=== PATIENT | male | born 1960 | race Caucasian/White ===

== ENCOUNTER 2022-01-05 19:11 | Inpatient (IN) | payer SELFPAY ==
[~2022-01-05] VITALS: Ht 179.1 cm; Wt 81.2 kg
[2022-01-05 19:15] VITALS: BP 142/74
[2022-01-05 19:33] LABS: HEMATOCRIT 42.6 % (42.0-52.0); MEAN CELL VOLUME 94.2 fl (80.0-94.0); MEAN CORPUSCULAR HGB 31.6 pg (27.0-31.0); MEAN CORPUSCULAR HGB CONC 33.6 g/dl (33.0-37.0); MEAN PLATELET VOLUME 10.4 fl (9.6-12.3); PLATELET COUNT AUTOMATED 217 10*3/uL (130-400); RED BLOOD COUNT 4.52 10*6/uL (4.50-5.90); RED CELL DISTRI WIDTH 13.7 % (0-14.5); WHITE BLOOD COUNT 9.6 10*3/uL (4.8-10.8)
[2022-01-05 19:34] LABS: MANUAL DIFF REFLEX YES
[2022-01-05 19:44] LABS: ACT PARTIAL THROMBO TIME 35.3 SECONDS (20.0-32.1); INTERNATIONAL NORM RATIO 1.3 (2.0-3.5)
[2022-01-05 19:49] LABS: ALKALINE PHOSPHATASE 98 U/L (45-117); BUN 13 mg/dl (7-24); CHLORIDE 108 mmol/L (98-107); CREATININE 0.91 mg/dL (0.70-1.30); POTASSIUM 3.4 mmol/L (3.5-5.1); SGOT/AST 24 IU/L (3-35); SGPT/ALT 24 U/L (12-78); SODIUM 136 mmol/L (136-145); TOTAL PROTEIN 7.7 gm/dL (6.4-8.2)
[2022-01-05 20:07] LABS: BASOPHILS 1 % (0-1); PLATELET SUFFICIENCY NORMAL (NORMAL); TOTAL CELLS COUNTED 100 #CELLS
[2022-01-06 00:45] VITALS: BP 132/70
[2022-01-06 05:54] LABS: ALKALINE PHOSPHATASE 86 U/L (45-117); BUN 14 mg/dl (7-24); CHLORIDE 108 mmol/L (98-107); CHOLESTEROL 183 mg/dL (<200); CREATININE 0.94 mg/dL (0.70-1.30); LDL CHOLESTEROL 114 mg/dL (9-159); POTASSIUM 4.3 mmol/L (3.5-5.1); SGOT/AST 27 IU/L (3-35); SGPT/ALT 27 U/L (12-78); SODIUM 139 mmol/L (136-145); TOTAL PROTEIN 6.9 gm/dL (6.4-8.2); TRIGLYCERIDES 195 mg/dl (<150)
[2022-01-06 06:00] LABS: FREE T4 1.11 ng/dl (0.76-1.46)
[2022-01-06 06:13] LABS: BASO # 0.1 10*3/uL (0.0-0.1); BASO % 0.8 % (0.0-1.0); EOS % 0.3 % (1.0-4.0); HEMATOCRIT 41.5 % (42.0-52.0); LYMPH # 1.7 10*3/uL (1.3-4.4); LYMPH % 19.4 % (27.0-41.0); MEAN CELL VOLUME 94.5 fl (80.0-94.0); MEAN CORPUSCULAR HGB 31.4 pg (27.0-31.0); MEAN CORPUSCULAR HGB CONC 33.3 g/dl (33.0-37.0); MEAN PLATELET VOLUME 10.9 fl (9.6-12.3); MONO # 1.2 10*3/uL (0.1-1.0); MONO % 14.1 % (3.0-9.0); NEUT # 5.7 10*3/uL (2.3-7.9); NEUT % 65.1 % (47.0-73.0); PLATELET COUNT AUTOMATED 208 10*3/uL (130-400); RED BLOOD COUNT 4.39 10*6/uL (4.50-5.90); RED CELL DISTRI WIDTH 13.8 % (0-14.5); WHITE BLOOD COUNT 8.8 10*3/uL (4.8-10.8)
[2022-01-06 06:22] LABS: ACT PARTIAL THROMBO TIME 36.4 SECONDS (20.0-32.1); INTERNATIONAL NORM RATIO 1.3 (2.0-3.5)
[2022-01-06 08:00] VITALS: BP 130/63
[2022-01-06 12:00] VITALS: BP 136/66
== END 2022-01-06 14:30 | disposition left against medical advice (07) | DRG 313 ==
LOC: ED 19:11 → 5E 23:06 → EDHOLD 23:06 → 5E 23:46
PROVIDERS: Emergency Medicine; Internal Medicine; ADMIT Internal Medicine; ATTEND Internal Medicine
DX: R07.9 Chest pain, unspecified (principal); K92.1 Melena; R55 Syncope and collapse; F17.210 Nicotine dependence, cigarettes, uncomplicated; I10 Essential (primary) hypertension; D75.89 Other specified diseases of blood and blood-forming organs; M54.2 Cervicalgia; E87.6 Hypokalemia; E87.8 Other disorders of electrolyte and fluid balance, not elsewhere classified; E83.41 Hypermagnesemia; Z53.29 Procedure and treatment not carried out because of patient's decision for other reasons; F12.90 Cannabis use, unspecified, uncomplicated; Z88.1 Allergy status to other antibiotic agents; Z88.8 Allergy status to other drugs, medicaments and biological substances; Z79.82 Long term (current) use of aspirin; Z79.899 Other long term (current) drug therapy; Z80.1 Family history of malignant neoplasm of trachea, bronchus and lung; Z80.8 Family history of malignant neoplasm of other organs or systems; Z71.6 Tobacco abuse counseling

== ENCOUNTER 2023-05-27 16:04 | Emergency (ER) | payer SELFPAY ==
[~2023-05-27] VITALS: Wt 82.6 kg
[2023-05-27 16:13] VITALS: BP 160/86
[2023-05-27 16:26] LABS: BASO # 0.1 10*3/uL (0.0-0.1); BASO % 0.6 % (0.0-1.0); EOS # 0.1 10*3/uL (0.0-0.4); EOS % 0.4 % (1.0-4.0); HEMATOCRIT 42.2 % (42.0-52.0); LYMPH # 1.4 10*3/uL (1.3-4.4); LYMPH % 11.7 % (27.0-41.0); MEAN CELL VOLUME 91.9 fl (80.0-94.0); MEAN CORPUSCULAR HGB CONC 34.8 g/dl (33.0-37.0); MONO # 1.7 10*3/uL (0.1-1.0); MONO % 14.5 % (3.0-9.0); NEUT # 8.5 10*3/uL (2.3-7.9); NEUT % 72.5 % (47.0-73.0); PLATELET COUNT AUTOMATED 273 10*3/uL (130-400); RED BLOOD COUNT 4.59 10*6/uL (4.50-5.90); RED CELL DISTRI WIDTH 12.7 % (0-14.5); WHITE BLOOD COUNT 11.7 10*3/uL (4.8-10.8)
[2023-05-27 16:52] VITALS: BP 146/85
[2023-05-27 16:52] LABS: ALKALINE PHOSPHATASE 95 U/L (46-116); BUN 10 mg/dl (9-23); CHLORIDE 104 mmol/L (98-107); POTASSIUM 3.4 mmol/L (3.4-5.1); SGPT/ALT 18 U/L (5-49); TOTAL PROTEIN 7.9 gm/dL (6.0-8.0)
[2023-05-27 17:00] LABS: BASOPHILS 1 % (0-1); TOTAL CELLS COUNTED 100 #CELLS
[2023-05-27 17:01] LABS: BURR CELLS FEW; OVALOCYTES FEW; PLATELET SUFFICIENCY NORMAL (NORMAL); TARGET CELLS FEW
[2023-05-27 19:01] VITALS: BP 136/66
== END 2023-05-27 20:13 | disposition left against medical advice (07) ==
LOC: ED 16:04 → EDHOLD 19:42 → ED 19:42
PROVIDERS: Family Medicine
DX: R07.89 Other chest pain (principal); I10 Essential (primary) hypertension; E78.5 Hyperlipidemia, unspecified; R20.0 Anesthesia of skin; E78.00 Pure hypercholesterolemia, unspecified; E83.41 Hypermagnesemia; E87.6 Hypokalemia; F17.200 Nicotine dependence, unspecified, uncomplicated; F12.90 Cannabis use, unspecified, uncomplicated; F10.10 Alcohol abuse, uncomplicated; Z88.1 Allergy status to other antibiotic agents; Z88.8 Allergy status to other drugs, medicaments and biological substances

== ENCOUNTER 2023-07-14 11:36 | Emergency (ER) | payer SELFPAY ==
[~2023-07-14] VITALS: Ht 177.8 cm; Wt 81.6 kg
[2023-07-14] MEDS ORDERED: Motrin,Rufen800 MG PO (11:56)
[2023-07-14] MEDS ORDERED: CLINDAMYCIN HC300 MG PO (11:56)
[2023-07-14] MEDS ORDERED: BENZOCAINE 20% 11.9 GM GEL T STA (11:57)
[2023-07-14] MEDS ORDERED: Lidocaine Hydrochloride 15 ML UDC PO STA (11:57)
[2023-07-14] MEDS ORDERED: CLINDAMYCIN HCL 300 MG CAPSULE PO ONE (12:00)
[2023-07-14] MEDS ORDERED: Ketorolac Tromethamine 60 MG/2 ML VIAL IM ONE (12:00)
[2023-07-14] MEDS ORDERED: Acetaminophen/Hydrocodone 5 MG/325 MG TABLET PO ONE (12:00)
== END 2023-07-14 12:35 | disposition home or self-care (01) ==
LOC: ED 11:36
DX: K04.7 Periapical abscess without sinus (principal); E78.00 Pure hypercholesterolemia, unspecified; E83.41 Hypermagnesemia; I10 Essential (primary) hypertension; E87.6 Hypokalemia; F17.200 Nicotine dependence, unspecified, uncomplicated; F12.90 Cannabis use, unspecified, uncomplicated; Z88.1 Allergy status to other antibiotic agents; Z88.8 Allergy status to other drugs, medicaments and biological substances

== ENCOUNTER 2025-02-02 18:19 | Inpatient (IN) | payer SELFPAY ==
[~2025-02-02] VITALS: Ht 177.8 cm; Wt 79.4 kg
[~2025-02-02 18:19] MED LIST: CLINDAMYCIN HC300 MG PO; Motrin,Rufen800 MG PO
[2025-02-02 18:24] VITALS: BP 154/88
[2025-02-02] MEDS ORDERED: ASPIRIN81 M3 PO (18:28)
[2025-02-02 19:42] LABS: BASO # 0.1 10*3/uL (0.0-0.1); BASO % 0.5 % (0.0-1.0); EOS # 0.1 10*3/uL (0.0-0.4); EOS % 0.4 % (1.0-4.0); MEAN CELL VOLUME 94.4 fl (80.0-94.0); MEAN CORPUSCULAR HGB 32.0 pg (27.0-31.0); MEAN PLATELET VOLUME 10.5 fl (9.6-12.3); MONO # 1.1 10*3/uL (0.1-1.0); MONO % 5.5 % (3.0-9.0); NEUT # 16.9 10*3/uL (2.3-7.9); NEUT % 84.4 % (47.0-73.0); NUCLEATED RED BLOOD CELL 0.0 % (0.0-0.0); NUCLEATED RED BLOOD CELL 0.0 10*3/uL (0.0-0.0); PLATELET COUNT AUTOMATED 245 10*3/uL (130-400); RED CELL DISTRI WIDTH 13.3 % (0-14.5)
[2025-02-02] MEDS ORDERED: BISACODYL 10 MG SUPP R PRN (19:55)
[2025-02-02] MEDS ORDERED: Acetaminophen/Hydrocodone 5 MG/325 MG TABLET PO PRN (19:55)
[2025-02-02] MEDS ORDERED: BISACODYL 5 MG TAB PO PRN (19:55)
[2025-02-02] MEDS ORDERED: TEMAZEPAM 15 MG CAP PO PRN (19:55)
[2025-02-02] MEDS ORDERED: ACETAMINOPHEN 325 MG TAB PO PRN (19:55)
[2025-02-02] MEDS ORDERED: ACETAMINOPHEN 650 MG SUPP R PRN (19:55)
[2025-02-02] MEDS ORDERED: Ondansetron Hydrochloride 4 MG/2 ML VIAL IV PRN (19:55)
[2025-02-02 19:56] LABS: ACT PARTIAL THROMBO TIME 26.3 SECONDS (20.0-32.1)
[2025-02-02 20:01] LABS: BUN 10 mg/dl (9-23)
[2025-02-02] MEDS ORDERED: SODIUM CHLORIDE 0.9% 1,000 ML IV ONE (20:35)
[2025-02-03] VITALS (10 sets, daily range): BP systolic 114–155; BP diastolic 66–91
[2025-02-03 06:14] LABS: BASO # 0.1 10*3/uL (0.0-0.1); BASO % 0.5 % (0.0-1.0); EOS # 0.2 10*3/uL (0.0-0.4); EOS % 1.4 % (1.0-4.0); MEAN CELL VOLUME 95.2 fl (80.0-94.0); MEAN CORPUSCULAR HGB 31.8 pg (27.0-31.0); MEAN PLATELET VOLUME 11.1 fl (9.6-12.3); MONO # 1.3 10*3/uL (0.1-1.0); MONO % 9.1 % (3.0-9.0); NEUT # 9.9 10*3/uL (2.3-7.9); NEUT % 67.4 % (47.0-73.0); NUCLEATED RED BLOOD CELL 0.0 % (0.0-0.0); NUCLEATED RED BLOOD CELL 0.0 10*3/uL (0.0-0.0); PLATELET COUNT AUTOMATED 264 10*3/uL (130-400); RED CELL DISTRI WIDTH 13.8 % (0-14.5)
[2025-02-03 06:52] LABS: BUN 9 mg/dl (9-23); FREE T4 1.34 ng/dl (0.89-1.76); LDL CHOLESTEROL 122 mg/dL (9-159); SGPT/ALT 15 U/L (5-49)
[2025-02-03 06:57] LABS: VITAMIN D, 25-HYDROXY 33.3 ng/mL (30-100)
[2025-02-03] MEDS ORDERED: ACETAMINOPHEN 0 ML IV ONE (07:30)
[2025-02-03] MEDS ORDERED: Lactated Ringer's Solution 0 ML IV ONE (07:30)
[2025-02-03] MEDS ORDERED: TRANEXAMIC ACID IN NACL,ISO-OS 100 ML IV ONE ×2 (09:00→09:36)
[2025-02-03] MEDS ORDERED: Ropivacaine Hydrochloride 5 MG/ML 20 ML AMP IJ ONE (09:51)
[2025-02-03] MEDS ORDERED: ACETAMINOPHEN 100 ML IV ONE (09:51)
[2025-02-03] MEDS ORDERED: Cholecalciferol 2,000 UNIT TABLET (50 MCG) PO SCH (10:00)
[2025-02-03] MEDS ORDERED: Lactated Ringer's Solution 1,000 ML IV ONE ×2 (10:02→11:31)
[2025-02-03] MEDS ORDERED: Ketamine Hydrochloride 50 MG/5 ML SYRINGE IV ONE (13:38)
[2025-02-03] MEDS ORDERED: Midazolam Hydrochloride 2 MG/2 ML VIAL IV ONE (13:38)
[2025-02-03] MEDS ORDERED: ePHEDrine Sulfate 25 MG/5 ML SYRINGE IV ONE (13:38)
[2025-02-03] MEDS ORDERED: GLYCOPYRROLATE 0.4 MG/2 ML VIAL IV ONE (13:38)
[2025-02-03] MEDS ORDERED: Dexamethasone Sodium Phospha 4 MG/ML VIAL IV ONE (13:38)
[2025-02-03] MEDS ORDERED: Ondansetron Hydrochloride 4 MG/2 ML VIAL IV ONE (13:38)
[2025-02-03] MEDS ORDERED: PROPOFOL 200 MG/20 ML VIAL IV ONE (13:38)
[2025-02-03] MEDS ORDERED: SUGAMMADEX SODIUM 200 MG/2 ML VIAL IV ONE (13:38)
[2025-02-03] MEDS ORDERED: SEVOFLURANE 250 ML BOT INH ONE (13:38)
[2025-02-03] MEDS ORDERED: Lidocaine Hydrochloride 5 ML VIAL IV ONE (13:38)
[2025-02-04] VITALS (9 sets, daily range): BP systolic 128–178; BP diastolic 66–88
[2025-02-04 06:00] LABS: BUN 11 mg/dl (9-23)
[2025-02-04 06:10] LABS: MEAN CELL VOLUME 94.7 fl (80.0-94.0); MEAN CORPUSCULAR HGB 31.1 pg (27.0-31.0); MEAN PLATELET VOLUME 11.2 fl (9.6-12.3); NUCLEATED RED BLOOD CELL 0.0 % (0.0-0.0); NUCLEATED RED BLOOD CELL 0.0 10*3/uL (0.0-0.0); PLATELET COUNT AUTOMATED 230 10*3/uL (130-400); RED CELL DISTRI WIDTH 13.9 % (0-14.5)
[2025-02-04 06:12] LABS: MANUAL DIFF REFLEX YES
[2025-02-04 06:54] LABS: PLATELET SUFFICIENCY NORMAL (NORMAL)
[2025-02-04] MEDS ORDERED: ASPIRIN ENTERIC COATED 81 MG TAB PO SCH ×2 (10:00)
[2025-02-04] MEDS ORDERED: Acetaminophen/Oxycodone 5 MG/325 MG TABLET PO PRN (19:00)
[2025-02-05 05:33] LABS: BUN 11 mg/dl (9-23)
[2025-02-05 06:04] LABS: BASO # 0.1 10*3/uL (0.0-0.1); BASO % 0.4 % (0.0-1.0); EOS # 0.2 10*3/uL (0.0-0.4); EOS % 1.0 % (1.0-4.0); MEAN CELL VOLUME 96.4 fl (80.0-94.0); MEAN CORPUSCULAR HGB 31.3 pg (27.0-31.0); MEAN PLATELET VOLUME 11.4 fl (9.6-12.3); MONO # 1.5 10*3/uL (0.1-1.0); MONO % 10.1 % (3.0-9.0); NEUT # 9.3 10*3/uL (2.3-7.9); NEUT % 62.9 % (47.0-73.0); NUCLEATED RED BLOOD CELL 0.0 % (0.0-0.0); NUCLEATED RED BLOOD CELL 0.0 10*3/uL (0.0-0.0); PLATELET COUNT AUTOMATED 229 10*3/uL (130-400); RED CELL DISTRI WIDTH 14.0 % (0-14.5)
[2025-02-05 08:00] VITALS: BP 162/78
[2025-02-05 11:51] VITALS: BP 169/79
[2025-02-05] MEDS ORDERED: PERCOCET 5-3251 EACH PO (12:53)
[2025-02-05] MEDS ORDERED: VITAMIN D350 MCG PO (12:53)
[2025-02-05] MEDS ORDERED: Motrin,Rufen800 MG PO (15:10)
== END 2025-02-05 14:49 | disposition home or self-care (01) | DRG 522 ==
LOC: ED 18:19 → EDHOLD 19:48 → 4E 02-03 09:13
PROVIDERS: Nurse Practitioner Family; Orthopaedic Surgery; Student in an Organized Health Care Education/Training Program; ADMIT Internal Medicine; ATTEND Internal Medicine
PROC: 0SRR0JZ Replacement of Right Hip Joint, Femoral Surface with Synthetic Substitute, Open Approach (ICD-10-PCS; principal; 2025-02-03)
DX: S72.001A Fracture of unspecified part of neck of right femur, initial encounter for closed fracture (principal); E87.1 Hypo-osmolality and hyponatremia; D64.9 Anemia, unspecified; F17.210 Nicotine dependence, cigarettes, uncomplicated; D72.828 Other elevated white blood cell count; I10 Essential (primary) hypertension; Z88.8 Allergy status to other drugs, medicaments and biological substances; Z91.09 Other allergy status, other than to drugs and biological substances; Z80.1 Family history of malignant neoplasm of trachea, bronchus and lung; Z80.8 Family history of malignant neoplasm of other organs or systems; Z79.899 Other long term (current) drug therapy; Z79.01 Long term (current) use of anticoagulants; Z79.2 Long term (current) use of antibiotics; Z79.82 Long term (current) use of aspirin; W18.39XA Other fall on same level, initial encounter; Y93.89 Activity, other specified; Y92.89 Other specified places as the place of occurrence of the external cause; Y99.8 Other external cause status; Z71.6 Tobacco abuse counseling

== ENCOUNTER → 2025-02-18 | Outpatient (CLI) | payer SELFPAY ==
[~2025-02-18] MED LIST changes: +ASPIRIN81 M3 PO; +PERCOCET 5-3251 EACH PO; +VITAMIN D350 MCG PO
== END | disposition home or self-care (01) ==
LOC: RAD 12:25
PROVIDERS: ATTEND Orthopaedic Surgery
DX: S72.001A Fracture of unspecified part of neck of right femur, initial encounter for closed fracture (principal); Z98.890 Other specified postprocedural states; X58.XXXA Exposure to other specified factors, initial encounter; Y93.89 Activity, other specified; Y92.89 Other specified places as the place of occurrence of the external cause; Y99.8 Other external cause status